=== PATIENT | female | born 1965 | race African-American/Black ===

== ENCOUNTER 2017-05-27 10:30 | Emergency (ER) | payer BC ==
[~2017-05-27] VITALS: Ht 160 cm; Wt 114.0 kg
[2017-05-27] MEDS ORDERED: METOCLOPRAMIDE HCL 10MG TABLET PO ONE (14:45)
[2017-05-27] MEDS ORDERED: DIPHENHYDRAMINE 25MG CAPSULE PO ONE (14:45)
[2017-05-27 14:56] LABS: BASOPHILS % 0.3 % (0.0-2.0); EOSINOPHILS % 0.1 % (0.0-5.0); HEMATOCRIT. 37.6 % (36.0-48.0); HEMOGLOBIN. 12.5 g/dL (12.0-16.0); LYMPHOCYTES % 9.9 % (20.0-50.0); MEAN CORPUSCULAR HEMOGLOBIN 27.2 pg (28.0-32.0); MEAN CORPUSCULAR VOLUME 81.8 fL (81.0-99.0); MEAN PLATELET VOLUME 7.6 fl (7.4-10.4); NEUTROPHILS % 80.7 % (40.0-76.0); PLATELET 332 x1000/uL (130-400); RED CELL DISTRIBUTION WIDTH 14.8 % (11.6-14.6)
[2017-05-27 15:01] LABS: INR 1.1; PROTHROMBIN TIME 11.4 sec (9.4-11.6)
[2017-05-27 15:08] LABS: CHLORIDE 101 mEq/L (98-107)
[2017-05-27 16:15] LABS: CLARITY URINE CLOUDY (CLEAR); COLOR URINE DARK YELLOW (YELLOW); KETONES URINE TRACE (NEGATIVE); LEUKOCYTE ESTERASE URINE 2+ (NEGATIVE); NITRITE URINE POSITIVE (NEGATIVE); OCCULT BLOOD URINE 2+ (NEGATIVE); PH URINE 5.5 (4.5-8.0); PROTEIN URINE 2+ (NEGATIVE); SPECIFIC GRAVITY URINE 1.019 (1.005-1.030); UROBILINOGEN URINE 0.2 E.U./dL (0.2-1.0)
[2017-05-27] MEDS ORDERED: ACETAMINOPHEN WITH CODEINE 300/30MG TABLET PO ONE (16:45)
[2017-05-27 18:00] VITALS: BP 149/91
== END 2017-05-27 18:31 | disposition home or self-care (01) ==
LOC: ER 10:30
DX: R51 Headache (principal); R41.0 Disorientation, unspecified; I10 Essential (primary) hypertension; R79.1 Abnormal coagulation profile
CPT/HCPCS: 36415; 70450; 80048; 81001; 85025; 85610; 87077; 87086; 87186; 99285; J8597; Q0163